=== PATIENT | female | born 1950 | race Caucasian/White ===

== ENCOUNTER → 2017-03-04 | Outpatient (CLI) | payer MEDICARE ==
[~2017-03-04] MED LIST: ASPIR-LOW81 MG PO; AUGMENTIN875 MG PO; FLONASE 0.05% D16 GM NS; HABITROL DPS7 MG TD; IMODIUM DPS2 MG PO; LIPITOR DPS40 MG PO; MAALOX DPS30 ML PO; MAXZIDE-25 DPS1 TAB PO; METOPROLOL TART50 MG PO; PANTOPRAZOLE SO40 MG PO; SURFAK DPS240 MG PO; TYLENOL DPS325 MG PO; ULTRAM DPS50 MG PO; VASOTEC DPS5 MG PO
== END | disposition home or self-care (01) ==
LOC: RAD.S 14:29
DX: Z12.31 Encounter for screening mammogram for malignant neoplasm of breast (principal)